=== PATIENT | female | born 1995 | race Two or more races ===

== ENCOUNTER 2017-07-09 20:38 | Emergency (ER) | payer OTHER ==
[~2017-07-09] VITALS: Ht 167.6 cm; Wt 170.0 kg
[~2017-07-09 20:38] MED LIST: HYDR-3498 PO; IBUP-1542 PO
[2017-07-09 20:40] VITALS: Ht 167.6 cm; Wt 170.0 kg
--- NOTE | 2017-07-09 23:25 | ERD ---
ER Documentation Chief Complaint Date/Time DATE: 07/09/17 TIME: 23:20 Chief Complaint R knee pain (chronic) c/o pain also pain from ankle to shoulder, diff walki HPI 22-year-old female presents here in emergency department for complaints of bilateral knee pain after falling 2 weeks ago. Patient patient has been having chronic issues with bilateral knee from before, but fell on it, is bruising of affected area. Patient is complaining of pain, throbbing pain, 6/10 scale, not better or worse with anything. Patient denies any numbness or tingling. Patient denies any fever or chills. ROS All systems reviewed and are negative except as per history of present illness. Medications Home Meds Active Scripts Ibuprofen* (Motrin*) 600 Mg Tab, 600 MG PO Q6, #20 TAB Prov:TOMMY PUENTE PA-C 12/09/15 Hydrocodone Bit-Acetaminophen* ([place]*) 5-325 Mg Tab, 1 TAB PO Q6 Y for PAIN, # 7 TAB Prov:TOMMY PUENTE PA-C 12/09/15 Allergies Allergies: Coded Allergies: No Known Drug Allergies (Verified Allergy, 11/07/11) PMhx/Soc Medical and Surgical Hx: pt denies Medical Hx, pt denies Surgical Hx History of Surgery: No Anesthesia Reaction: No Hx Neurological Disorder: No Hx Respiratory Disorders: No Hx Cardiac Disorders: No Hx Psychiatric Problems: No Hx Miscellaneous Medical Probl: No Hx Alcohol Use: Yes (socially) Hx Substance Use: No Hx Tobacco Use: No Smoking Status: Never smoker Physical Exam Vitals Vital Signs Date Time Temp Pulse Resp B/P Pulse Ox O2 Delivery O2 Flow Rate FiO2 07/09/17 20:40 98.2 98 20 119/60 98 Physical Exam GENERAL: The patient is well developed and appropriate for usual state of health, in no apparent distress. CHEST: Clear to auscultation bilaterally. There are no rales, wheezes or rhonchi. HEART: Regular rate and rhythm. No murmurs, clicks, rubs or gallops. No S3 or S4. ABDOMEN: Soft, nontender and nondistended. Good bowel sounds. No rebound or guarding. No gross peritonitis. No gross organomegaly or masses. No Yang sign or McBurney point tenderness. BACK: No midline or flank tenderness. EXTREMITIES: noted bruising in the patellar aspect of bilateral knee, able to do full range of motion without any restriction, no deformity noted, no swelling noted. Equal pulses bilaterally. There is no peripheral clubbing, cyanosis or edema. No focal swelling or erythema. Full range of motion. Grossly neurovascularly intact. NEURO: Alert and oriented. Cranial nerves 2-12 intact. Motor strength in all 4 extremities with 5/5 strength. Sensation grossly intact. Normal speech and gait. SKIN: There is no apparent rash or petechia. The skin is warm and dry. HEMATOLOGIC AND LYMPHATIC: There is no evidence of excessive bruising or lymphedema. No gross cervical, axillary, or inguinal lymphadenopathy. Results 24 hrs Current Medications Medications (Trade) Dose Ordered Sig/Og Route PRN Reason Start Time Stop Time Status Last Admin Dose Admin Tramadol HCl (Ultram) 50 mg ONCE ONCE PO 07/10/17 00:00 07/10/17 00:01 PROCEDURE: XR Knees. CLINICAL INDICATION: Bilateral knee pain. TECHNIQUE: Total of eight views. Weightbearing frontal, oblique, and lateral views of the both knees. Patellar views of both knees. COMPARISON: No prior study is available for comparison. FINDINGS: There is no fracture or dislocation. The soft tissues are normal. Articular surfaces are intact. There is no lytic or blastic lesion. There is no radiopaque foreign body. IMPRESSION: 1. Unremarkable images of both knees. RPTAT: QQ .Castro Miller MD, MD Date Time Electronically viewed and signed by .Castro Miller MD, MD on 07/09/2017 23:35 .R/ Procedures/MDM Medical Decision Making: Patient's pain is most likely consistent with a contusion or a sprain. There is no suspicion for neurovascular compromise. Patient has intact sensation and circulation of the affected extremity. There is low suspicion for septic arthritis. Patient does not have any fever. Radiology exams of the affected area does not show any fracture or dislocation. Disposition: Home. Patient is given prescription for ibuprofen for pain, tramadol for severe pain. Patient was advised to elevate the affected area and apply ice on affected area. Patient was advised that if symptoms are worse, numbness, tingling, high fever, unable to move joint, worsening symptoms, to return to emergency department immediately. Otherwise, patient is advised to follow up with the primary care doctor in 5-7 days for reevaluation of symptoms. Disclaimer: Inadvertent spelling and grammatical errors are likely due to EHR/ dictation software use and do not reflect on the overall quality of patient care. Also, please note that the electronic time recorded on this note does not necessarily reflect the actual time of the patient encounter. Departure Diagnosis: Primary Impression: Knee pain Chronicity: acute Laterality: bilateral Qualified Code: M25.561 - Acute pain of both knees Condition: Stable Patient Instructions: Knee Pain, Uncertain Cause Additional Instructions: Patient is given prescription for ibuprofen for pain, tramadol for severe pain. Patient was advised to elevate the affected area and apply ice on affected area. Patient was advised that if symptoms are worse, numbness, tingling, high fever, unable to move joint, worsening symptoms, to return to emergency department immediately. Otherwise, patient is advised to follow up with the primary care doctor in 5-7 days for reevaluation of symptoms. JABARI NIELSEN NP Jul 09, 2017 23:25
--- NOTE | 2017-07-09 23:36 | RADRPT ---
PROCEDURE: XR Knees. CLINICAL INDICATION: Bilateral knee pain. TECHNIQUE: Total of eight views. Weightbearing frontal, oblique, and lateral views of the both kn ees. Patellar views of both knees. COMPARISON: No prior study is available for comparison. FINDINGS: There is no fracture or dislocation. The soft tissues are normal. Articular surfaces are intact. There is no lytic or blastic lesion. There is no radiopaque foreign body. IMPRESSION: 1. Unremarkable images of both knees. RPTAT: QQ .Castro Miller MD, MD Date Time Electronically viewed and signed by .Castro Miller MD, MD on 07/09/2017 23:35 .R/
[2017-07-09] MEDS ORDERED: IBUP-1542 PO (23:41)
[2017-07-09] MEDS ORDERED: TRAM50TA2 PO (23:41)
[2017-07-10] MEDS ORDERED: traMADol 50 MG TAB PO ONE
[2017-07-10 00:06] VITALS: BP 112/72; PULSE 66; RESP 20; TEMP 98.6
== END 2017-07-10 00:07 | disposition home or self-care (01) ==
LOC: FTE 20:38
DX: M25.561 Pain in right knee (principal); M25.562 Pain in left knee
CPT/HCPCS: 73564; Z7502; Z7610

== ENCOUNTER 2018-04-14 20:49 | Emergency (ER) | END 2018-04-15 00:19 | disposition home or self-care (01) ==

== ENCOUNTER 2018-05-17 18:41 | Emergency (ER) | END 2018-05-17 20:47 | disposition home or self-care (01) ==